=== PATIENT | female | born 1945 | race Caucasian/White ===

== ENCOUNTER 2016-12-18 13:15 | Emergency (ER) | payer OTHER ==
[~2016-12-18] VITALS: Ht 162.6 cm; Wt 48.1 kg
[~2016-12-18 13:15] MED LIST: AMLO2.5T PO; ASPI325T PO; BACL10TA PO; BIOT2500 PO; BYST5TAB2 PO; CALC600T25 PO; COQ-150C PO; GABA300C5 PO; HYDR-3366 PO; MAGN65TA PO; MULT1TAB84 PO; NORC5TAB PO; OMEGCAP PO; VITA10007 PO
[2016-12-18 13:19] VITALS: BP 142/76; PULSE 88; RESP 16; TEMP 98.8; O2SAT 96
[2016-12-18] MEDS ORDERED: MAGI615T2 (13:41)
[2016-12-18] MEDS ORDERED: ASCO500T PO (13:41)
[2016-12-18] MEDS ORDERED: COEN100T PO (13:41)
--- NOTE | 2016-12-18 13:56 | PD ---
HPI Chief Complaint: Musculoskeletal Complaint Time Seen by Provider: 13:30 Travel History International Travel<30 days: No Contact w/Intl Traveler<30days: No Traveled to known affect area: No History of Present Illness HPI 71 year-old female presents to the emergency room for evaluation of neck pain for the past 3 days. Patient states she woke up with her pain and it has progressively gotten worse every day. She denies any trauma or injury. States it's localized to the left lateral paraspinous musculature with radiation into anterior neck, jaw, and shoulders. States it is making her head hurt. Pain is worsened with any range of motion. She has applied heat and taken ibuprofen with minimal to moderate relief in symptoms. Ice makes her symptoms worse. Denies upper extremity paresthesias. Patient has history of C5-6 fusion 18 years ago. Denies photophobia, fever, chills, nausea, and vomiting. Denies dental or ear pain. 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 ) Neurologic: Yes (PIN AND NEEDLES IN R LEG) Psychiatric: No Reproductive: No Respiratory: No Myocardial Infarction: No Radiation Therapy: No Sleep Apnea: No Thyroid Disease: No Tetanus Vaccination: Unknown Influenza Vaccination: Yes ?: Not Past Surgical History Abdominal Surgery: Yes (APPENDIX REMOVED GALL BLADDER REMOVED ) AICD: No Appendectomy: Yes Arteriovenous Shunt: No Body Medical Devices: HARDWARE IN [employer] Cardiac Surgery: Yes (NEGATIVE HEART CATH IN 2000) Cholecystectomy: Yes Ear Surgery: No Endocrine Surgery: No Eye Surgery: No Genitourinary Surgery: No Gynecologic Surgery: Yes (HYSTERECTOMY ) Hysterectomy: Yes Insulin Pump: No Joint Replacement: No Neurologic Surgery: Yes (CERVICAL FUSION ) Oral Surgery: No Pacemaker: No Thoracic Surgery: No Other Surgery: Yes Social History Alcohol Use: Yes (ONE DRINK DAILY) Tobacco Use: No (TEENEAGER) Substance Use: No Allergies-Medications (Allergen,Severity, Reaction): Coded Allergies: Demerol (Verified Allergy, Severe, HIVES, 7/5/17) Morphine (Verified Allergy, Severe, HIVES, 12/18/16) Penicillin (Verified Allergy, Severe, ITCHING, 12/18/16) Ancef (Verified Allergy, Intermediate, nausea & vomiting, 12/18/16) Reported Meds & Prescriptions Reported Meds & Active Scripts Active Baclofen 10 Mg Tab 5 Mg PO Q8HR PRN Medrol Dosepak (Methylprednisolone) 4 Mg Dspk 4 Mg PO DIRECTED Per Pharmacist direction Ibuprofen 600 Mg Tab 600 Mg PO Q8HR PRN Reported Maginex (Magnesium Aspartate HCl) 61 Mg Tablet. Ascorbic Acid 500 Mg Tab 1,000 Mg PO Coenzyme Q10 (Ubidecarenone) 100 Mg Tab 150 Mg PO Amlodipine (Amlodipine Besylate) 2.5 Mg Tab 2.5 Mg PO DAILY PT TAKES IN THE AFTERNOON Bystolic (Nebivolol) 5 Mg Tab 5 Mg PO DAILY Calcium (Calcium Carbonate) 600 Mg Tab 600 Mg PO BID [place]-3 Fish Oil/Vitamin (Fish Oil-Cholecalciferol) 1,000-1,000 Mg Cap 1 Cap PO BID Aspirin 325 Mg Tab 325 Mg PO DAILY Biotin 2,500 Mcg Cap 2,500 Mcg PO DAILY Review of Systems Except as stated in HPI: all other systems reviewed are Neg Physical Exam Narrative GENERAL: Well-nourished, well-developed female in no acute distress. Afebrile. Ambulatory. SKIN: Focused skin assessment warm/dry. HEAD: Normocephalic. EYES: No scleral icterus. No injection or drainage. No photophobia. NECK: Supple. No meningeal signs. Trachea midline. No JVD or lymphadenopathy. Limited range of motion of his neck secondary to pain. Extreme tenderness to palpation of the left paraspinous musculature of the cervical spine. EARS: Bilateral pinnae and external canals appear within normal limits. Bilateral tympanic membranes without erythema, dullness or perforation. CARDIOVASCULAR: Regular rate and rhythm without murmurs, gallops, or rubs. RESPIRATORY: Breath sounds equal bilaterally. No accessory muscle use. NEUROLOGICAL: Awake and alert. Cranial nerves II through XII intact. Motor and sensory grossly within normal limits. Five out of 5 muscle strength in all muscle groups. Normal speech. No, ulnar, and median nerves intact bilaterally. 2+ radial pulses bilaterally. Data Data Last Documented VS Vital Signs Date Time Temp Pulse Resp B/P Pulse Ox O2 Delivery O2 Flow Rate FiO2 12/18/16 13:19 98.8 88 16 142/[address] Cerv Spine W/O Contrast (12/18/16 ) Dexamethasone Inj (Decadron Inj) (12/18/16 15:15) Ketorolac Inj (Toradol Inj) (12/18/16 15:15) Methocarbamol (Robaxin) (12/18/16 15:15) MDM Medical Decision Making Medical Screen Exam Complete: Yes Emergency Medical Condition: Yes Medical Record Reviewed: Yes Differential Diagnosis Muscle spasm, strain, he generated disc disease, meningitis unlikely Narrative Course 71-year-old female presents to the emergency room for evaluation of neck pain for the past 3 days that has progressively gotten worse. Patient is afebrile and well-appearing in the emergency room. She has extreme tenderness to palpation of the left paraspinous cervical musculature. Extreme pain with range of motion. No midline tenderness. She denies paresthesias. CT of the neck is negative for acute abnormality. Likely muscle spasm. Patient was given Toradol, Robaxin, and Decadron in the emergency room. She'll be discharged with prescriptions for ibuprofen, baclofen, and Medrol Dosepak. Told to follow-up with the primary care physician or return for worsening symptoms. She understands and agrees to plan. Diagnosis Primary Impression: Cervical strain, acute Qualified Code: S16.1XXA - Cervical strain, acute, initial encounter Referrals: Primary Care Physician Patient Instructions: Cervical Strain (ED), General Instructions Additional Instructions: Rest and drink plenty of fluids. Take baclofen as directed, as needed for pain. Take ibuprofen with food as directed, as needed for pain. Take Medrol Dosepak as directed, until gone. Follow-up with a primary care physician. Return to the emergency room for worsening symptoms. Scripts Baclofen 10 Mg Tab5 Mg PO Q8HR PRN (MUSCLE SPASM) #12 TAB Ref 0 Prov:Mildred Ramesh DO 12/18/16 Methylprednisolone Dosepak (Medrol Dosepak)4 Mg Dspk4 Mg PO DIRECTED #1 DSPK Ref 0 Per Pharmacist direction Prov:Mildred Ramesh DO 12/18/16 Ibuprofen 600 Mg [id number] Mg PO Q8HR PRN (PAIN) #12 TAB Ref 0 Prov:Mildred Ramesh DO 12/18/16 Disposition: 01 DISCHARGE HOME Condition: Stable Donita Perales Dec 18, 2016 13:56
--- NOTE | 2016-12-18 14:50 | RADRPT ---
EXAM DATE/TIME: 12/18/2016 13:55 [facility] COMPARISON: No previous studies available for comparison. INDICATIONS : Woke up with severe neck pain. RADIATION DOSE: 26.03 CTDIvol (mGy) MEDICAL HISTORY : Hypertension. SURGICAL HISTORY : Fusion, cervical. ENCOUNTER: Initial ACUITY: 2 days PAIN SCALE: 10/10 LOCATION: neck TECHNIQUE: Volumetric scanning of the cervical spine was performed. Multiplanar reconstructions in the sagittal, coronal and oblique axial planes were performed. Using automated exposure control and adjustment o f the mA and/or kV according to patient size, radiation dose was kept as low as reasonably achievable to obtain optimal diagnostic quality images. DICOM format image data is available electronically f or review and comparison. FINDINGS: VERTEBRAE: Status post anterior cervical fusion from C5-C7. There is good alignment of the cervical spine. The b latricia structures are grossly intact. There are primary bony degenerative changes. The hardware appears to be grossly intact. There appears to be solid bony fusion from C5-C7. There is facet arthritis at m ultiple levels bilaterally. ALIGNMENT: No evidence of subluxation. C2-C3: The bony spinal canal is normal in size. No evidence of disc bulge or herniation. The neural forami na are bilaterally patent. C3-C4: The bony spinal canal is normal in size. No evidence of disc bulge or herniation. The neural forami na are bilaterally patent. C4-C5: The bony spinal canal is normal in size. No evidence of disc bulge or herniation. The neural forami na are bilaterally patent. C5-C6: The bony spinal canal is normal in size. No evidence of disc bulge or herniation. The neural forami na are bilaterally patent. C6-C7: The bony spinal canal is normal in size. No evidence of disc bulge or herniation. The neural forami na are bilaterally patent. C7-T1: The bony spinal canal is normal in size. No evidence of disc bulge or herniation. The neural forami na are bilaterally patent. CONCLUSION: 1. No acute bony fracture. 2. Status post intracervical fusion from C5-C7. 3. Primary bony degenerative changes. Hari Joseph MD on December 18, 2016 at 14:44 Board Certified Radiologist. This report was verified electronically.
[2016-12-18] MEDS ORDERED: KETOROLAC TROMETHAMINE 60 MG/2 ML (IM) VIAL IM ONE (15:15)
[2016-12-18] MEDS ORDERED: DEXAMETHASONE SOD PHOS 4 MG/ML VIAL IM ONE (15:15)
[2016-12-18] MEDS ORDERED: METHOCARBAMOL 500 MG TAB PO ONE (15:15)
[2016-12-18] MEDS ORDERED: MEDR4PAK PO (15:23)
[2016-12-18] MEDS ORDERED: IBUP-232 PO (15:23)
[2016-12-18] MEDS ORDERED: BACL10TA PO (15:23)
== END 2016-12-18 15:37 | disposition home or self-care (01) ==
LOC: PHEFT 13:15
DX: S16.1XXA Strain of muscle, fascia and tendon at neck level, initial encounter (principal); R51 Headache; I10 Essential (primary) hypertension; Z98.890 Other specified postprocedural states; Z87.39 Personal history of other diseases of the musculoskeletal system and connective tissue; X58.XXXA Exposure to other specified factors, initial encounter
CPT/HCPCS: 72125; 96372; 99285; J1885; J1100